=== PATIENT | male | born 1965 | race Caucasian/White ===

== ENCOUNTER 2023-08-10 04:34 | Day surgery (SDC) | payer OTHER ==
[2023-08-04 13:06] VITALS: BMI 24.3
[2023-08-10 11:37] VITALS: RESP 18; TEMP 97.6
[2023-08-10 12:07] VITALS: BP 118/75; PULSE 63
== END 2023-08-10 12:07 | disposition home or self-care (01) ==
LOC: JASU-ENDO 04:34
PROVIDERS: ATTEND Internal Medicine Gastroenterology
PROC: 0DJD8ZZ Inspection of Lower Intestinal Tract, Via Natural or Artificial Opening Endoscopic (ICD-10-PCS; principal; 2023-08-10 11:00)
DX: Z12.11 Encounter for screening for malignant neoplasm of colon (principal); K57.30 Diverticulosis of large intestine without perforation or abscess without bleeding; K64.8 Other hemorrhoids
CPT/HCPCS: 82962